=== PATIENT | female | born 1925 | race Caucasian/White ===

== ENCOUNTER 2016-04-12 11:24 | Emergency (ER) | payer MEDICARE, OTHER ==
[~2016-04-12] VITALS: Ht 172.7 cm; Wt 61.7 kg
[~2016-04-12 11:24] MED LIST: ACT35T; CHOL400C8 PO; CLC500CT PO; CLCX200C; CLD600T PO; HYDR-2856 PO; MECL25TA56 PO; MELO-195 PO; NF-ESOM40C
--- OUTSIDE RECORDS SUMMARY | 2016-04-12 11:29 | XMS REPORT | Continuity of Care Document ---
Author Author [facility] Organization [facility] Address Unknown Phone Unavailable Care Team Providers Care Coiled Coil Inspector Name Role Phone NO, LOCAL PHYSICIAN PCP Unavailable Insurance Providers Payer Name Policy Number Subscriber Name Relationship [employer] [id number] Katie Castillo 18 Self / Same As Patient Enter Insurance Name [id number] Katie Castillo 18 Self / Same As Patient Advance Directives Directive Response Recorded Date/Time Advance Directives No 10/02/14 10:55pm Health Care Power of Packaging Machine Supplies Distributor No 10/02/14 10:55pm Organ Donor Yes 10/02/14 10:55pm Resuscitation Status Full Code 10/02/14 10:55pm Problems Medical Problems Problem Onset Date Status Dizziness of unknown cause Unknown Active Left bundle branch block Unknown Active Ruptured varicose vein Unknown Active Medications Medication Dose Route Sig Days/Qty Instructions Order Date Discontinued Date Status Calcium/Vitamin D 1 Tab PO DAILY 01/27/08 Active Esomeprazole Magnesium DAILY 01/27/08 09/21/13 Discontinued Meloxicam (Mobic) 1 Each PO DAILY 11/27/11 09/21/13 Discontinued Hydroxyzine Hcl 25 Mg PO EVERY 8HRS PRN ITCHING 09/21/13 Active Meclizine HCl 25 Mg PO EVERY 6 HOURS PRN DIZZINESS 09/21/13 Active Calcium Carbonate 500 Mg PO THREE TIMES A DAY PRN ACID REFLUX Active Cholecalciferol (Vitamin D3) 400 Unit PO DAILY 09/21/13 Active Social History Social History Problem Response Recorded Date/Time Alcohol Use Denies Use 10/02/2014 10:55pm Recreational Drug Use No 10/02/2014 10:55pm Recent Foreign Travel No 10/02/2014 10:42pm Recent Infectious Disease Exposure No 10/02/2014 10:42pm Hospitalization with Isolation Denies 10/02/2014 10:42pm Sexually Transmitted Disease No 10/02/2014 10:55pm HIV/AIDS No 10/02/2014 10:55pm Smoking Status Never a Smoker 10/02/2014 10:55pm Query Response Start Date Stop Date Smoking Status Never a Smoker Hospital Discharge Instructions No hospital discharge instructions. Plan of Care No plan of care. Functional Status No functional status results. Allergies, Adverse Reactions, Alerts Allergen Type Severity Reaction Status Last Updated diazepam ([id number]) Allergy Unknown Active 01/27/08 Penicillin g Allergy Unknown Active 01/27/08 Immunizations No immunization records. Vital Signs Acute Vital Signs Vital Response Date/Time Temperature (Fahrenheit) 98.7 degrees F (97.6 - 99.5) Temperature (Calculated Celsius) 37.06935 degrees C (36.4 - 37.5) Temperature Source Temporal Pulse Rate (adult) 96 bpm (60 - 90) Respiratory Rate 20 bpm (12 - 24) O2 Sat by Pulse Oximetry 97 % (88 - 100) Blood Pressure 145/73 mm Hg Blood Pressure Mean 97 mm Hg Pain Pain Intensity 0 Height (Feet) 5 feet Height (Inches) 10 inches Height (Calculated Centimeters) 177.450183 cm Weight (Pounds) 155 pounds Weight (Calculated Kilograms) 70.845153 kilograms Calculated BMI 22.24 Results No known relevant diagnostic tests, laboratory data and/or discharge summary. Procedures No known history of procedures. Encounters Encounter Location Date/Time Registered Emergency Room [facility] 10/02/14 10:47pm Recent Diagnosis
[2016-04-12] MEDS ORDERED: NS IV 500 ML 500 ML IV ONE (11:32)
[2016-04-12 11:44] LABS: BASOPHILS % (AUTO) 0 % (0-10); EOSINOPHILS # (AUTO) 0.1 10^3/uL (0.0-0.3); EOSINOPHILS % (AUTO) 1 % (0-10); LYMPHOCYTES # (AUTO) 1.6 X 10^3 (1.0-4.0); LYMPHOCYTES % (AUTO) 14 % (12-44); MEAN CORPUSCULAR HEMOGLOBIN 30 PG (25-34); MEAN CORPUSCULAR HGB CONC 33 G/DL (32-36); MEAN CORPUSCULAR VOLUME 91 FL (80-99); MEAN PLATELET VOLUME 9.9 FL (7.4-10.4); MONOCYTES # (AUTO) 0.7 X 10^3 (0.0-1.0); MONOCYTES % (AUTO) 6 % (0-12); NEUTROPHILS # (AUTO) 8.8 X 10^3 (1.8-7.8); NEUTROPHILS % (AUTO) 79 % (42-75); PLATELET COUNT 238 10^3/uL (130-400); RED BLOOD COUNT 3.78 10^6/uL (4.35-5.85); WHITE BLOOD COUNT 11.2 10^3/uL (4.3-11.0)
--- NOTE | 2016-04-12 11:49 | ED Fall/Injury ---
General Chief Complaint: Trauma-Non Activation Stated Complaint: FALL/RT HIP PAIN Nursing Triage Note: TO ROOM 04 VIA AMBULANCE. PT FELL AT HOME ONTO RIGHT HIP AT 5 AM. WAS ABLE TO WALK ON HIP AND CALLED THE AMBULNCE 6 HRS LATER. PT STATES SHE FELL DUE TO DIZZINESS AND COMPLAINS OF EXTREME DIZZINESS AT THIS TIME ALONG WITH RIGHT HIP PAIN. Source: patient Exam Limitations: no limitations History of Present Illness Time seen by provider: 11:30 Initial Comments Here with report of fall at home approximately 5 a.m. This morning. She states that she landed on the right hip. She was able to walk afterwards but is complaining of dizziness. She states that she's been dizzy all morning. She believes this may be related to her medication, gabapentin, which she took last night. She has this in a liquid form and is not sure if she may have taken a few extra drops of that. She had taken some of this previously and it caused dizziness at that time. She is on that for lower extremity pain. She also has some cellulitis of the right lower extremity that she is being seen and followed with by Dr. Enriquez, her primary care physician. Denies fevers, vomiting, chest pain, breathing problems or other concerns. She denies hitting her head or loss of consciousness. Occurred: this morning Severity: moderate Injuries/Pain Location: pelvis, lower extremity Context: lost balance Loss of Consciousness: no loss of consciousness Associated Symptoms (Fall): No Abdominal Pain, No Chest Pain, DizzinessNo Headache, LightheadednessNo Nausea/Vomiting, No Shortness of Air, No Slurred Speech Allergies and Home Medications Allergies Coded Allergies: Sulfa (Sulfonamide Antibiotics) (Verified Allergy, Unknown, 04/12/16) diazepam (Verified Allergy, Unknown, 01/27/08) penicillin G (Verified Allergy, Unknown, 01/27/08) Home Medications Calcium Carbonate 500 Mg Tab.chew 500 MG PO TID PRN PRN ACID REFLUX (Reported) Calcium Carbonate/Vitamin D3 1 Tab Tablet 1 TAB PO DAILY (Reported) Cholecalciferol (Vitamin D3) 400 Unit Capsule 400 UNIT PO DAILY (Reported) Hydroxyzine Hcl 25 Mg Tablet 25 MG PO Q8H PRN PRN ITCHING (Reported) Levofloxacin 500 Mg Tablet #7 500 MG PO DAILY Prescribed by: KIMBERLY MENDOZA on 04/12/16 2572 Meclizine Hcl 25 Mg Tablet 25 MG PO Q6H PRN PRN DIZZINESS (Reported) Constitutional: see HPINo chills, No fever Eyes: No Symptoms Reported Ears, Nose, Mouth, Throat: no symptoms reported Respiratory: no symptoms reportedNo short of breath Cardiovascular: No chest pain, No edema Gastrointestinal: No abdominal pain, No nausea, No vomiting Genitourinary: no symptoms reportedNo dysuria, No pain Musculoskeletal: joint swelling muscle pain Skin: see HPI change in color (right lower extremity near the ankle) Psychiatric/Neurological: See HPIDenies Headache, Weakness All Other Systems Reviewed Negative Unless Noted: Yes Past Dfmkwzv-Kpvmec-Ifumty Hx Patient Social History Alcohol Use: Denies Use Recreational Drug Use: No Smoking Status: Never a Smoker Recent Foreign Travel: No Contact w/Someone Who Travel: No Recent Infectious Disease Expo: No Recent Hopitalizations: Yes (SEE BELOW) Surgeries HX Surgeries: Yes ([place], APPENDECTOMY, HYSTERECTOMY, VEINS STRIPPED IN RIGHT LEG) Surgeries: Abdominal, Appendectomy, Hysterectomy Respiratory Hx Respiratory Disorders: No Cardiovascular Hx Cardiac Disorders: No Neurological Hx Neurological Disorders: Yes (recent diag brain tumor) Reproductive System Hx Reproductive Disorders: No Sexually Transmitted Disease: No HIV/AIDS: No Genitourinary Hx Genitourinary Disorders: No Gastrointestinal Hx Gastrointestinal Disorders: Yes (CONSTIPATION) Gastrointestinal Disorders: Hiatal Hernia Musculoskeletal Hx Musculoskeletal Disorders: Yes Musculoskeletal Disorders: Osteoporosis, Arthritis Endocrine Hx Endocrine Disorders: No HEENT HX ENT Disorders: Yes (DRY MOUTH) Cancer Hx Cancer: No Psychosocial Hx Psychiatric Problems: Yes Behavioral Health Disorders: Depression Integumentary HX Skin/Integumentary Disorder: No Reviewed Nursing Assessment Reviewed/Agree w Nursing PMH: Yes Family Medical History Family Medial History: Cancer 19 MOTHER Family history: Arthritis 19 FATHER 19 MOTHER Family history: Cardiovascular disease daughter daughter daughter Physical Exam Vital Signs Vital Sign - Last 12Hours 04/12/16 11:28 Temp 98.7 Pulse 76 Resp 16 B/P 137/76 Pulse Ox 100 O2 Delivery Room Air Capillary Refill : Less Than 3 Seconds General Appearance: WD/WN no apparent distress HEENT: PERRL/EOMI pharynx normal Neck: full range of motion supple Cardiovascular: regular rate, rhythm no murmur Respiratory: lungs clear normal breath sounds Gastrointestinal: non tender soft Back: normal inspection no CVA tenderness no vertebral tenderness Extremities: non-tender normal inspection Neurologic/Psychiatric: alert oriented x 3 Skin: normal color warm/dry [place] Coma Score Best Eye Response: (4) Open Spontaneously Best Verbal Response: (5) Oriented Best Motor Response: (6) Obeys Commands Progress/Results/Core Measures Results/Orders Lab Results Laboratory Tests Test 04/12/16 11:36 04/12/16 11:55 Range/Units Alanine Aminotransferase (ALT/SGPT) 14 0-55 U/L Albumin 3.7 3.2-4.5 G/DL Alkaline Phosphatase 69 40-136 U/L Anion Gap 10 5-14 MMOL/L Aspartate Amino Transf (AST/SGOT) 19 5-34 U/L BUN/Creatinine Ratio 30 Basophils # (Auto) 0.0 0.0-0.1 10^3/uL Basophils (%) (Auto) 0 0-10 % Blood Urea Nitrogen 22 H 7-18 MG/DL C-Reactive Protein High Sensitivity 0.11 0.00-0.50 MG/DL Calcium Level 9.3 8.5-10.1 MG/DL Carbon Dioxide Level 24 21-32 MMOL/L Chloride Level 108 H 98-107 MMOL/L Creatinine 0.73 0.60-1.30 MG/DL Eosinophils # (Auto) 0.1 0.0-0.3 10^3/uL Eosinophils (%) (Auto) 1 0-10 % Estimat Glomerular Filtration Rate > 60 Glucose Level 125 H 70-105 MG/DL Hematocrit 35 35-52 % Hemoglobin 11.3 L 11.5-16.0 G/DL Lymphocytes # (Auto) 1.6 1.0-4.0 X 10^3 Lymphocytes (%) (Auto) 14 12-44 % Magnesium Level 2.0 1.8-2.4 MG/DL Mean Corpuscular Hemoglobin 30 25-34 PG Mean Corpuscular Hemoglobin Concent 33 32-36 G/DL Mean Corpuscular Volume 91 80-99 FL Mean Platelet Volume 9.9 7.4-10.4 FL Monocytes # (Auto) 0.7 0.0-1.0 X 10^3 Monocytes (%) (Auto) 6 0-12 % Neutrophils # (Auto) 8.8 H 1.8-7.8 X 10^3 Neutrophils (%) (Auto) 79 H 42-75 % Platelet Count 238 130-400 10^3/uL Potassium Level 3.8 3.6-5.0 MMOL/L Red Blood Count 3.78 L 4.35-5.85 10^6/uL Red Cell Distribution Width 14.0 10.0-14.5 % Sodium Level 142 135-145 MMOL/L Thyroid Stimulating Hormone (TSH) 1.89 0.35-4.94 UIU/ML Total Bilirubin 0.3 0.1-1.0 MG/DL Total Protein 6.9 6.4-8.2 G/DL White Blood Count 11.2 H 4.3-11.0 10^3/uL Urine Amorphous Sediment MOD TARSHA URATES H /LPF Urine Bacteria LARGE H /HPF Urine Bilirubin NEGATIVE NEGATIVE Urine Casts NONE /LPF Urine Clarity CLEAR Urine Color YELLOW Urine Crystals NONE /LPF Urine Culture Indicated YES Urine Glucose (UA) NEGATIVE NEGATIVE Urine Ketones NEGATIVE NEGATIVE Urine Leukocyte Esterase 3+ H NEGATIVE Urine Mucus NEGATIVE /LPF Urine Nitrite NEGATIVE NEGATIVE Urine Protein NEGATIVE NEGATIVE Urine RBC 2-5 H /HPF Urine RBC (Auto) 3+ H NEGATIVE Urine Specific [place] 1.010 L 1.016-1.022 Urine Squamous Epithelial Cells NONE /HPF Urine Urobilinogen NORMAL NORMAL MG/DL Urine WBC 10-25 H /HPF Urine pH 7 5-9 My Orders Orders-KIMBERLY MENDOZA MD Saline Lock/Iv-Start (04/12/16 11:32) Ns Iv 500 Ml (Sodium Chloride 0.9%) (04/12/16 11:32) Ct Head Wo (04/12/16 11:32) Chest 1 View, Ap/Pa Only (04/12/16 11:32) Pelvis (04/12/16 11:32) Hip, Right, 2 Views (04/12/16 11:32) Ekg Tracing (04/12/16 11:32) Cbc With Automated Diff (04/12/16 11:32) Comprehensive Metabolic Panel (04/12/16 11:32) Hs C Reactive Protein (04/12/16 11:32) Magnesium (04/12/16 11:32) Thyroid Stimulating Hormone (04/12/16 11:32) Ua Culture If Indicated (04/12/16 11:32) Straight Cath (Urinary) (04/12/16 11:59) Urine Culture (04/12/16 11:55) Ceftriaxone Injection (Rocephin Injectio (04/12/16 14:00) Medications Given in ED Current Medications Medications Dose Ordered Sig/Lily Route Start Time Stop Time Status Last Admin Dose Admin Ceftriaxone Sodium/Sodium Chloride 50 ml @ 100 mls/hr ONCE ONCE IV 04/12/16 14:00 04/12/16 14:29 04/12/16 13:57 100 MLS/HR Sodium Chloride 500 ml @ 0 mls/hr Q0M ONCE IV 04/12/16 11:32 04/12/16 11:35 DC 04/12/16 12:33 500 MLS/HR Vital Signs/I&O Vital Sign - Last 12Hours 04/12/16 11:28 Temp 98.7 Pulse 76 Resp 16 B/P 137/76 Pulse Ox 100 O2 Delivery Room Air Blood Pressure Mean: 96 Progress Note : Progress Note seen and evaluated. IV, labs, UA, CT head, chest x-ray, pelvis x-ray and right hip x-ray ordered. Normal saline 500 mL bolus. Monitor patient. UTI noted. Rocephin 1 g IV. Patient is much better after fluids. Discharged home with return precautions. Patient and family verbalize understanding instructions and agreement with plan. There are stable changes of COPD on the chest x-ray. Patient has had multiple urinary tract infections. We will treat outpatient with nitrofurantoin twice a day for UTI. This was discussed with patient and family who agree. ECG Initial ECG Impression Date: Apr 12, 2016 Initial ECG Impression Time: 11:39 Initial ECG Rate: 71 Initial ECG Rhythm: Normal Sinus Comment Sinus rhythm with left bundle branch block. Leftward axis. No evidence of ST elevation CA. Similar to previous of 09/21/13. Interpreted by me. Diagnostic Imaging Diagonstic Imaging: CT Plain Films/CT/US/NM/MRI: head Comments VIA [facility]. [place], [place] NAME: REKHA OLIVIA [facility] REC#: [id number] PT STATUS: REG ER : 1925 PHYSICIAN: KIMBERLY MENDOZA MD ADMIT DATE: 04/12/16/ER Draft Date of Exam:04/12/16 CT HEAD WO PROCEDURE: CT head without contrast. TECHNIQUE: Multiple contiguous axial images were obtained through the brain without the use of intravenous contrast. INDICATION: Fall with head pain and dizziness, no loss of consciousness. COMPARISON: 09/20/2013. DISCUSSION: No adverse interval change. Chronic appearing right lacunar infarct is stable. No acute intracranial hemorrhage, mass, midline shift, hydrocephalus. Mild diffuse brain volume loss is likely age related, stable. White matter hypoattenuation is nonspecific though not greater than expected for age related chronic small vessel ischemic disease, stable. The visualized orbits, paranasal sinuses, mastoid air cells, and calvarium are unremarkable. IMPRESSION: 1. Senescent changes as described. No acute intracranial abnormality identified. Dictated on workstation # [id number] Dict: 04/12/16 1221 Trans: 04/12/16 1226 [facility] [id number] Interpreted by: FAUSTINA LAWRENCE MD Electronically signed by: Diagonstic Imaging: Xray Plain Films/CT/US/NM/MRI: hip Comments VIA [place], [place] NAME: [email or web address] [facility] REC#: [id number] PT STATUS: REG ER : 1925 PHYSICIAN: KIMBERLY MENDOZA MD ADMIT DATE: 04/12/16/ER Draft Date of Exam:04/12/16 HIP, RIGHT, 2 VIEWS INDICATION: Fall with right hip pain. DISCUSSION: Two views of the right hip were obtained, no comparison. No fracture or dislocation. Moderate degenerative changes are noted within the right hip and right sacroiliac joint. Large quantity of stool within the rectum. Soft tissues are otherwise unremarkable. IMPRESSION: 1. Degenerative changes of the right hip as described. No acute fracture identified. Dictated on workstation # [id number] Dict: 04/12/16 1237 Trans: 04/12/16 1239 [facility] [id number] Interpreted by: FAUSTINA LAWRENCE MD Electronically signed by: Diagonstic Imaging: Xray Plain Films/CT/US/NM/MRI: pelvis [facility] [place] [place] NAME: CORWINClydeT[employer] SystemsK[employer]LINE [employer] [facility] REC#: [id number] PT STATUS: REG ER : 1925 PHYSICIAN: KIMBERLY MENDOZA MD ADMIT DATE: 04/12/16/ER Draft Date of Exam:04/12/16 PELVIS INDICATION: Fall with right hip pain. DISCUSSION: Single AP view of the pelvis was obtained, no comparison. Moderate degenerative changes are noted within the bilateral hip joints and bilateral sacroiliac joints. No acute fracture or dislocation. Large quantity of stool within the rectum. Soft tissues are otherwise unremarkable. IMPRESSION: 1. No acute osseous abnormality identified within the pelvis. Chronic changes as discussed. Dictated on workstation # [id number] Dict: 04/12/16 1236 Trans: 04/12/16 1239 [facility] [id number] Interpreted by: FAUSTINA LAWRENCE MD Electronically signed by: Suziegonstic Imaging: Xray Plain Films/CT/US/NM/MRI: chest Comments Stable changes of COPD Reviewed: Reviewed by Me Departure Impression Impression: Primary Impression: Urinary tract infection Qualified Code: N30.00 - Acute cystitis without hematuria Additional Impression: Contusion of right hip Qualified Code: S70.01XA - Contusion of right hip, initial encounter Disposition: HOME, SELF-CARE Condition: Improved Departure-Patient Inst. Decision time for Depature: 13:56 Referrals: NO,LOCAL PHYSICIAN (PCP/Family) Primary Care Physician Patient Instructions: Urinary Tract Infection, Adult (DC) Add. Discharge Instructions: All discharge instructions reviewed with patient and/or family. Voiced understanding. Take medications as directed. Follow-up with your Dr. in a few days for recheck. Return for worsening, fever, vomiting, weakness, breathing problems or other concerns as needed. Stop the gabapentin. Drink plenty of fluids. Scripts Nitrofurantoin Macrocrystal (Nitrofurantoin)100 Mg [id number] Mg PO BID #14 CAP Prov:KIMBERLY MENDZOA MD 04/12/16 KIMBERLY MENDOZA MD Apr 12, 2016 11:49
[2016-04-12 12:03] LABS: ALANINE AMINOTRANSFERASE 14 U/L (0-55); ALBUMIN 3.7 G/DL (3.2-4.5); ANION GAP 10 MMOL/L (5-14); ASPARTATE AMINO TRANSFERASE 19 U/L (5-34); BILIRUBIN,TOTAL 0.3 MG/DL (0.1-1.0); BLOOD UREA NITROGEN 22 MG/DL (7-18); BUN/CREATININE RATIO 30; CARBON DIOXIDE 24 MMOL/L (21-32); CHLORIDE 108 MMOL/L (98-107); CREATININE SERUM 0.73 MG/DL (0.60-1.30); GFR ESTIMATED > 60; GLUCOSE 125 MG/DL (70-105); POTASSIUM 3.8 MMOL/L (3.6-5.0); SODIUM 142 MMOL/L (135-145); TOTAL PROTEIN 6.9 G/DL (6.4-8.2); hs C REACTIVE PROTEIN 0.11 MG/DL (0.00-0.50)
[2016-04-12 12:07] LABS: BILIRUBIN,URINE NEGATIVE (NEGATIVE); KETONES,URINE NEGATIVE (NEGATIVE); LEUKOCYTE ESTERASE ,URINE 3+ (NEGATIVE); NITRITE,URINE NEGATIVE (NEGATIVE); PH,URINE 7 (5-9); PROTEIN,URINE NEGATIVE (NEGATIVE); UROBILINOGEN,URINE NORMAL (NORMAL)
[2016-04-12 12:22] LABS: THYROID STIMULATING HORMONE 1.89 UIU/ML (0.35-4.94)
--- NOTE | 2016-04-12 12:26 | Diagnostic Imaging Report ---
PROCEDURE: CT head without contrast. TECHNIQUE: Multiple contiguous axial images were obtained through the brain without the use of intravenous contrast. INDICATION: Fall with head pain and dizziness, no loss of consciousness. COMPARISON: 09/20/2013. DISCUSSION: No adverse interval change. Chronic appearing right lacunar infarct is stable. No acute intracranial hemorrhage, mass, midline shift, hydrocephalus. Mild diffuse brain volume loss is likely age related, stable. White matter hypoattenuation is nonspecific though not greater than expected for age related chronic small vessel ischemic disease, stable. The visualized orbits, paranasal sinuses, mastoid air cells, and calvarium are unremarkable. IMPRESSION: 1. Senescent changes as described. No acute intracranial abnormality identified. Dictated by: Dictated on workstation # [id number]
[2016-04-12 12:29] LABS: CALCIUM 9.3 MG/DL (8.5-10.1)
--- NOTE | 2016-04-12 12:39 | Diagnostic Imaging Report ---
INDICATION: Fall with right hip pain. DISCUSSION: Two views of the right hip were obtained, no comparison. No fracture or dislocation. Moderate degenerative changes are noted within the right hip and right sacroiliac joint. Large quantity of stool within the rectum. Soft tissues are otherwise unremarkable. IMPRESSION: 1. Degenerative changes of the right hip as described. No acute fracture identified. Dictated by: Dictated on workstation # [id number]
--- NOTE | 2016-04-12 12:40 | Diagnostic Imaging Report ---
INDICATION: Fall with right hip pain. DISCUSSION: Single AP view of the pelvis was obtained, no comparison. Moderate degenerative changes are noted within the bilateral hip joints and bilateral sacroiliac joints. No acute fracture or dislocation. Large quantity of stool within the rectum. Soft tissues are otherwise unremarkable. IMPRESSION: 1. No acute osseous abnormality identified within the pelvis. Chronic changes as discussed. Dictated by: Dictated on workstation # [id number]
[2016-04-12] MEDS ORDERED: LEVO500T80 PO (13:55)
--- NOTE | 2016-04-12 13:57 | Diagnostic Imaging Report ---
INDICATION: Recent episode of dizziness with fall. DISCUSSION: Single portable upright view of the chest was obtained, comparison 09/20/2013. Underlying COPD is stable. Previous antecedent granulomatous disease, benign. Stable normal heart size. No focal consolidation, pleural fluid, or pneumothorax. No acute osseous abnormality identified. IMPRESSION: Stable changes of COPD. Dictated by: Dictated on workstation # [id number]
[2016-04-12] MEDS ORDERED: cefTRIAXone INJECTION 1,000 MG in NS (IVPB) 50 ML IV ONE (14:00)
[2016-04-12] MEDS ORDERED: NITR100C PO (14:04)
[2016-04-12 14:37] VITALS: BP 162/86
== END 2016-04-12 14:37 | disposition home or self-care (01) ==
LOC: EDUNIT# 11:24 → ER 11:26
DX: S70.01XA Contusion of right hip, initial encounter (principal); N39.0 Urinary tract infection, site not specified; R42 Dizziness and giddiness; M16.11 Unilateral primary osteoarthritis, right hip; J44.9 Chronic obstructive pulmonary disease, unspecified; Z79.899 Other long term (current) drug therapy; W01.0XXA Fall on same level from slipping, tripping and stumbling without subsequent striking against object, initial encounter; Y92.009 Unspecified place in unspecified non-institutional (private) residence as the place of occurrence of the external cause; Y99.8 Other external cause status
CPT/HCPCS: 36415; 51701; 70450; 71010; 72170; 73502; 80053; 81000; 83735; 84443; 85025; 86141; 87077; 87088; 87186; 93005; 96374

== ENCOUNTER → 2016-05-28 | Outpatient (CLI) | payer MEDICARE, OTHER ==
[~2016-05-28] MED LIST changes: +LEVO500T80 PO; +NITR100C PO
--- NOTE | 2016-05-28 17:55 | Diagnostic Imaging Report ---
CLINICAL INDICATION: Patient with low back pain. No recent injury. Pain is going down left leg. EXAM: X-ray of the lumbar spine, three views. COMPARISON: None. FINDINGS: There is diffuse osteopenia. There is limited visualization of the bony structures due to osteopenia and overlying bowel gas. There is no acute lumbar spine fracture seen. There appears to be grade 1 anterolisthesis of L5 on S1. There is levoscoliosis of the lumbar spine with apex at the L3 vertebral body level. There are small degenerative spurs seen throughout the lumbar spine. There is multilevel loss of intervertebral disc height which is moderate to severe at the L5-S1 levels, moderate to severe at the L2-L3 level and mild to moderate at the L3-L4 level. There is lower lumbar spine facet arthropathy/hypertrophy. The sacroiliac joints, sacrum, and visualized portions of the pelvis are unremarkable. Multiple surgical clips overlying the left upper abdomen. IMPRESSION: 1: There is no evidence of acute lumbar spine fracture as visualized. 2: There appears to be grade 1 anterolisthesis of L5 on S1. 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 Dictated by: Dictated on workstation # [id number]
== END ==
LOC: RAD 16:09
PROVIDERS: ATTEND Nurse Practitioner Family
DX: M54.42 Lumbago with sciatica, left side (principal)
CPT/HCPCS: 72100

== ENCOUNTER → 2016-06-04 | Outpatient (CLI) | payer MEDICARE, OTHER ==
--- NOTE | 2016-06-04 16:29 | Diagnostic Imaging Report ---
EXAMINATION: Three views of the sacrum and coccyx. INDICATION: Pain. FINDINGS: There is mild degenerative sclerosis seen in the SI joints bilaterally. There is a mildly displaced fracture of the proximal coccyx with mildly posteriorly displaced distal fragment. This is associated with the suggestion of sclerotic margins in favor of chronicity. No prior similar studies are available for comparison. IMPRESSION: Mildly displaced fracture in the proximal coccyx is favored to be old. No prior studies are available for comparison. Correlate clinically. This can be better evaluated with the CT or MRI of the sacrum. Dictated by: Dictated on workstation # [id number]
--- NOTE | 2016-06-04 16:37 | Diagnostic Imaging Report ---
Three views of the lumbar spine. INDICATION: Fall. FINDINGS: There is a left convexity scoliosis of the lumbar spine. There is grade 1 spondylolisthesis of L5 over S1. The vertebral body heights are preserved. Disc heights are also preserved. Endplate degenerative sclerosis at multiple levels in the lumbar spine however seen. There are also degenerative changes of the SI joints. There are sclerotic degenerative changes in the lower facet joints. IMPRESSION: Left convexity scoliosis. Degenerative changes. Dictated by: Dictated on workstation # [id number]
== END ==
LOC: RAD 14:50
PROVIDERS: ATTEND Nurse Practitioner Family
DX: M41.9 Scoliosis, unspecified (principal); M47.816 Spondylosis without myelopathy or radiculopathy, lumbar region
CPT/HCPCS: 72100; 72220

== ENCOUNTER → 2016-06-11 | Outpatient (CLI) | payer MEDICARE, OTHER ==
--- NOTE | 2016-06-11 13:26 | Diagnostic Imaging Report ---
PROCEDURE: MRI pelvis without contrast. TECHNIQUE: Multiplanar, multisequence MRI of the pelvis was performed without contrast. Indication: Pelvic pain Finding: There is an insufficiency fracture involving the sacrum at the S1 and the S2 levels. This is associated with a focal anterior cortical depression in the upper aspect of the anterior margin of S2 level. Significant bone marrow edema is seen. There is also bone marrow edema in both iliac bones posteriorly. This is also suggestive of a bone marrow contusion and nondisplaced microscopic fracture lines along the length of the posterior aspect of the ilium on both sides is seen. The sacrum canal demonstrate normal CSF density with the thecal sac terminating at lower S2 level. There is minimal soft tissue edema in the presacral area with no large hematoma seen. There is an old fracture of the coccyx with minimal posterior translation of C2 relative to C1 of the coccygeal segments. There is a grade 1 spondylolysis of L5 over S1. There is suggestion of prior hysterectomy or significant atrophy of the uterus. IMPRESSION: Nondisplaced fractures of the sacrum levels S1 and S2 and of the posterior ilium at the level of the SI joints bilaterally. OSCAR Clements taking care of the patient was informed of the findings on 06/12/16 at 1:40 PM. Dictated by: Dictated on workstation # [id number]
== END ==
LOC: RAD 11:35
PROVIDERS: ATTEND Registered Nurse
DX: S32.10XA Unspecified fracture of sacrum, initial encounter for closed fracture (principal); X58.XXXA Exposure to other specified factors, initial encounter; Y99.8 Other external cause status
CPT/HCPCS: 72195

== ENCOUNTER 2016-09-19 01:57 | Emergency (ER) | payer MEDICARE, OTHER ==
[~2016-09-19] VITALS: Ht 172.7 cm; Wt 61.4 kg
[2016-09-19] MEDS ORDERED: methylPREDNISolone 125 MG (Solu-MEDROL) VIAL IV STA (02:10)
[2016-09-19] MEDS ORDERED: FAMOTIDINE 20MG/2ML IV (PEPCID) IV STA (02:10)
[2016-09-19] MEDS ORDERED: diphenhydrAMINE 50 MG/ML INJ (BENADRYL) IV STA (02:10)
--- NOTE | 2016-09-19 02:35 | ED Integumentary General ---
General Chief Complaint: Allergic Reaction Stated Complaint: ALLERGIC RXN Nursing Triage Note: Pt amb to ED Rm 5 after driving herself to hospital experiencing an allergic reaction. Reports went outside to take trash and began redness, swelling, and itching of skin around 1999. Last ate [id number]. Source: patient History of Present Illness Time seen by provider: 02:09 Initial Comments PT ARRIVES VIA POV--DROVE SELF HERE STATES SHE BEGAN TO HAVE A RASH, ITCHING AND SWELLING AFTER SHE TOOK THE TRASH OUT AROUND 2000 TONIGHT HAS SLIGHT SHORTNESS OF BREATH, BUT NO WHEEZING, NO SWELLING OF LIPS/TONGUE OR THROAT NO DIFFICULTY SWALLOWING HAS SLIGHT NAUSEA, NO VOMITING. NO ABDOMINAL PAIN STATES ONLY TIME SHE HAD SOMETHING SIMILAR WAS WHEN SHE TOOK [employer] ANTIBIOTIC, BUT HAS NOT BEEN ON ANY ANTIBIOTICS RECENTLY AND NO NEW MEDICATIONS NO NEW FOODS OR EXPOSURES PT ATE AROUND 1800 TONIGHT--[employer] PCP: DR. BECK, DEV FREY Allergies and Home Medications Allergies Coded Allergies: Sulfa (Sulfonamide Antibiotics) (Verified Allergy, Unknown, 04/12/16) diazepam (Verified Allergy, Unknown, 01/27/08) penicillin G (Verified Allergy, Unknown, 01/27/08) Home Medications Calcium Carbonate 500 Mg Tab.chew, 500 MG PO TID PRN for ACID REFLUX, (Reported) Calcium Carbonate/Vitamin D3 1 Tab Tablet, 1 TAB PO DAILY, (Reported) Cholecalciferol (Vitamin D3) 400 Unit Capsule, 400 UNIT PO DAILY, (Reported) Famotidine 40 Mg Tablet, 40 MG PO DAILY, #10 Prescribed by: YUNIER BISWAS on 09/19/16 045 Hydroxyzine Hcl 25 Mg Tablet, 25 MG PO Q8H PRN for ITCHING, (Reported) Hydroxyzine Pamoate 50 Mg Capsule, 50 MG PO Q6H, #20 Prescribed by: YUNIER BISWAS on 09/19/16 0457 Meclizine Hcl 25 Mg Tablet, 25 MG PO Q6H PRN for DIZZINESS, (Reported) Prednisone 10 Mg Tab, 40 MG PO DAILY, #12 Prescribed by: YUNIER BISWAS on 09/19/16 0457 Constitutional: no symptoms reported, No dizziness EENTM: no symptoms reported, No hoarseness, No mouth swelling, No nose congestion, No throat swelling Respiratory: see HPI, No cough, No dyspnea on exertion, short of breath, No wheezing Cardiovascular: no symptoms reported, No chest pain, No palpitations, No syncope Gastrointestinal: see HPI, No abdominal pain, nausea, No vomiting Genitourinary: no symptoms reported Musculoskeletal: no symptoms reported Skin: see HPI Psychiatric/Neurological: No Symptoms Reported Endocrine: No Symptoms Reported Hematologic/Lymphatic: No Symptoms Reported Past Njeefpc-Onaexp-Cflunf Hx Patient Social History Alcohol Use: Denies Use Recreational Drug Use: No Smoking Status: Never a Smoker Recent Foreign Travel: No Contact w/Someone Who Travel: No Recent Infectious Disease Expo: No Recent Hopitalizations: No (SEE BELOW) Seasonal Allergies Seasonal Allergies: No Surgeries HX Surgeries: Yes (LAP HILL GASTROPEXY, APPENDECTOMY, HYSTERECTOMY, VEINS STRIPPED IN RIGHT LEG; BILATERAL CATARACTS) Surgeries: Abdominal, Appendectomy, Eye Surgery, Hysterectomy, Vascular Surgery Respiratory Hx Respiratory Disorders: No Cardiovascular Hx Cardiac Disorders: Yes (VARICOSE VEINS STRIPPED) Neurological Hx 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 Reproductive System Hx Reproductive Disorders: No Sexually Transmitted Disease: No HIV/AIDS: No Genitourinary Hx Genitourinary Disorders: No Gastrointestinal Hx Gastrointestinal Disorders: Yes (CONSTIPATION) Gastrointestinal Disorders: Gastroesophageal Reflux, Chronic Constipation, Hiatal Hernia Musculoskeletal Hx Musculoskeletal Disorders: Yes (RIB FRACTURES, RIGHT DISTAL FIBULA FRACTURE) Musculoskeletal Disorders: Osteoporosis, Arthritis, Fractures Endocrine Hx Endocrine Disorders: No HEENT HX ENT Disorders: Yes (DRY MOUTH) HEENT Disorders: Cataract Cancer Hx Cancer: No Psychosocial Hx Psychiatric Problems: Yes Behavioral Health Disorders: Depression Integumentary HX Skin/Integumentary Disorder: Yes (MRSA CELLULITIS) Family Medical History Family Medial History: Cancer 19 MOTHER Family history: Arthritis 19 FATHER 19 MOTHER Family history: Cardiovascular disease daughter daughter daughter Physical Exam Vital Signs Vital Sign - Last 12Hours 09/19/16 02:02 Temp 99.0 Pulse 99 Resp 20 B/P (MAP) 180/97 Pulse Ox 96 O2 Delivery Room Air Capillary Refill : Less Than 3 Seconds General Appearance: WD/WN, no apparent distress HEENT: PERRL/EOMI, normal ENT inspection, TMs normal, pharynx normal, other ( MILD BILATERAL PERIORBITAL EDEMA; NO SWELLING TO LIPS, TONGUE OR UVULA/ POSTERIOR PHARYNX. VOICE NORMAL. ) Neck: non-tender, full range of motion, supple, normal inspection Cardiovascular: regular rate, rhythm, no JVD, systolic murmur (2/6--HIGH PITCHED) Respiratory: normal breath sounds, no respiratory distress, no accessory muscle use, other (NO EVIDENCE OF DYSPNEA) Gastrointestinal: normal bowel sounds, non tender, soft Back: normal inspection, no CVA tenderness Extremities: normal range of motion, non-tender, no calf tenderness, normal capillary refill Neurologic/Psychiatric: rough rice tender II-XII nml as tested, no motor/sensory deficits, alert, normal mood/affect, oriented x 3 Skin: warm/dry, rash (DIFFUSE ERYTHEMA TO CHEST , NECK AND FACE, WITH MILD EDEMA. PATCHY ERYTHEMA TO ARMS, AND ABDOMEN. MILD TO MODERATE SWELLING TO RIGHT PALM AND FOREARM. ) Progress/Results/Core Measures Results/Orders My Orders Orders - YUNIER BISWAS DO Saline Lock/Iv-Start (09/19/16 02:10) Monitor-Rhythm Ecg Trace Only (09/19/16 02:10) Diphenhydramine Injection (Benadryl Inje (09/19/16 02:10) Methylprednisolone Sod Succ (Solu-Medrol (09/19/16 02:10) Famotidine Injection (Pepcid Injection) (09/19/16 02:10) Hydroxyzine Oral (Vistaril Capsule) (09/19/16 03:00) Hydroxyzine Oral (Vistaril Capsule) (09/19/16 02:48) Epinephrine 1 Mg Injection (Adrenalin I (09/19/16 03:18) Epinephrine 1 Mg Injection (Adrenalin I (09/19/16 04:01) Medications Given in ED Current Medications Medications Dose Ordered Sig/Lily Route Start Time Stop Time Status Last Admin Dose Admin Hydroxyzine Pamoate 50 mg ONCE ONCE PO 09/19/16 03:00 09/19/16 03:01 DC 09/19/16 02:55 50 MG Vital Signs/I&O Vital Sign - Last 12Hours 09/19/16 09/19/16 09/19/16 02:02 03:25 04:07 Temp 99.0 99.0 99.0 Pulse 99 Resp 20 B/P (MAP) 180/97 Pulse Ox 96 O2 Delivery Room Air Blood Pressure Mean: 124 Progress Note : Progress Note GAVE SOLU-MEDROL, PEPCID, BENADRYL AND VISTARIL WITHOUT SIGNIFICANT IMPROVEMENT , IN RASH OR ITCHING, BUT NAUSEA AND SENSATION OF MILD SHORTNESS OF BREATH RESOLVED GAVE EPINEPHRINE X 2 DOSES RASH AND ITCHING AND SWELLING AREAS BEGINNING TO LESSEN PRIOR TO DISMISSAL Departure Impression Impression: Primary Impression: ALLERGIC REACTION OF UNKNOWN ETIOLOGY Disposition: 01 HOME, SELF-CARE Condition: Stable Departure-Patient Inst. Referrals: BEBE BECK MD (PCP) Primary Care Physician FARZAD FREY (Family) Primary Care Physician Patient Instructions: Hives (DC) Add. Discharge Instructions: LOTS OF CLEAR LIQUIDS NO NEW FOODS/DRINKS , PRODUCTS, ETC. FOLLOW UP WITH YOUR DR TOMORROW IF NO BETTER All discharge instructions reviewed with patient and/or family. Voiced understanding. Scripts Famotidine (Pepcid) 40 Mg Tablet 40 MG PO DAILY, #10 TAB Prov: YUNIER BISWAS DO 09/19/16 Hydroxyzine Pamoate (Vistaril) 50 Mg Capsule 50 MG PO Q6H for HIVES, #20 CAP Prov: YUNIER BISWAS DO 09/19/16 Prednisone (Prednisone) 10 Mg Tab 40 MG PO DAILY, #12 TAB Prov: YUNIER BISWAS DO 09/19/16 Images Full Body/Extremities Full Progress SEE ADDITIONAL PAPER DIAGRAMS FOR IMAGES YUNIER BISWAS DO Sep 19, 2016 02:35
[2016-09-19] MEDS ORDERED: hydrOXYzine (VISTARIL) 25 MG CAP ONE (02:48)
[2016-09-19] MEDS ORDERED: hydrOXYzine (VISTARIL) 25 MG CAP PO ONE (03:00)
[2016-09-19] MEDS ORDERED: EPINEPHrine INJECTION 1 MG/ML AMP IM STA ×2 (03:18→04:01)
[2016-09-19] MEDS ORDERED: PRD10T PO (04:57)
[2016-09-19] MEDS ORDERED: HYDR50CA PO (04:57)
[2016-09-19] MEDS ORDERED: FAMO40TA72 PO (04:57)
[2016-09-19 05:22] VITALS: BP 131/64
== END 2016-09-19 05:22 | disposition home or self-care (01) ==
LOC: EDUNIT# 01:57 → ER 01:59
DX: T78.40XA Allergy, unspecified, initial encounter (principal); K21.9 Gastro-esophageal reflux disease without esophagitis; Z79.899 Other long term (current) drug therapy
CPT/HCPCS: 93041; 96372; 96374; 96375

== ENCOUNTER → 2017-04-11 | Outpatient (CLI) | payer MEDICARE, OTHER ==
[~2017-04-11] MED LIST changes: +FAMO40TA72 PO; +HYDR50CA PO; +PRD10T PO
== END ==
LOC: CARD 10:37
PROVIDERS: ATTEND Internal Medicine Cardiovascular Disease
DX: I51.7 Cardiomegaly (principal); I34.0 Nonrheumatic mitral (valve) insufficiency; I73.9 Peripheral vascular disease, unspecified; I07.1 Rheumatic tricuspid insufficiency
CPT/HCPCS: 93306